=== PATIENT | female | born 1985 | race Caucasian/White ===

== ENCOUNTER 2025-08-15 22:15 | Emergency (ER) | payer BC ==
[2025-08-15 22:26] VITALS: BP 112/79; PULSE 85; RESP 17; TEMP 97.9; BMI 25.6
[2025-08-15] MEDS ORDERED: DIPHTH,PERTUSS(ACELL),TET 0.5 ML DISP.SYRIN IM ONE (22:54)
[2025-08-15] MEDS: DIPHTH,PERTUSS(ACELL),TET 0.5 ML DISP.SYRIN IM ONE (23:01)
== END 2025-08-15 23:12 | disposition home or self-care (01) ==
LOC: FER 22:15
PROC: 0HQGXZZ Repair Left Hand Skin, External Approach (ICD-10-PCS; principal; 2025-08-15)
PROC: 3E0234Z Introduction of Serum, Toxoid and Vaccine into Muscle, Percutaneous Approach (ICD-10-PCS; 2025-08-15)
DX: S61.211A Laceration without foreign body of left index finger without damage to nail, initial encounter (principal); Z23 Encounter for immunization; W26.8XXA Contact with other sharp object(s), not elsewhere classified, initial encounter; Y93.G1 Activity, food preparation and clean up
CPT/HCPCS: 90715; 99284-25